=== PATIENT | female | born 1985 | race Caucasian/White ===

== ENCOUNTER 2022-06-26 13:01 | Emergency (ER) | payer BC ==
[2022-06-26] MEDS ORDERED: Acetaminophen 325 MG Tab PO ONE (13:53)
[2022-06-26] MEDS ORDERED: Lidocaine 1% 10 ML MDV INJECT ONE (14:12)
== END 2022-06-26 14:46 | disposition home or self-care (01) ==
LOC: JD.ED 13:01
DX: S06.0X0A Concussion without loss of consciousness, initial encounter (principal); S01.01XA Laceration without foreign body of scalp, initial encounter; S01.81XA Laceration without foreign body of other part of head, initial encounter; W18.09XA Striking against other object with subsequent fall, initial encounter
CPT/HCPCS: 12001; 12011; 99283; A9270; J3490

== ENCOUNTER 2023-09-13 19:48 | Emergency (ER) | payer BC, OTHER | END 2023-09-13 21:18 | disposition home or self-care (01) | LOC: JD.ED 19:48 | DX: J34.89 Other specified disorders of nose and nasal sinuses (principal) | CPT/HCPCS: 99282 ==